=== PATIENT | female | born 1990 ===

== ENCOUNTER 2023-03-25 16:50 | Inpatient (IN) | payer OTHER ==
[~2023-03-25] VITALS: Ht 157.5 cm; Wt 71.2 kg
[2023-04-01] MEDS ORDERED: PRENATAL TABLE1 EAC1 PO (18:47)
== END 2023-04-04 12:59 | disposition home or self-care (01) | DRG 807 ==
LOC: OB/GYN 04-01 16:50 → LDR 04-01 18:16 → OB/GYN 04-02 16:53
PROVIDERS: ADMIT Obstetrics & Gynecology; ATTEND Obstetrics & Gynecology
PROC: 4A1HXCZ Monitoring of Products of Conception, Cardiac Rate, External Approach (ICD-10-PCS; 2023-04-01)
PROC: 10E0XZZ Delivery of Products of Conception, External Approach (ICD-10-PCS; principal; 2023-04-02)
PROC: 0HQ9XZZ Repair Perineum Skin, External Approach (ICD-10-PCS; 2023-04-02)
PROC: 0UQG7ZZ Repair Vagina, Via Natural or Artificial Opening (ICD-10-PCS; 2023-04-02)
DX: O70.0 First degree perineal laceration during delivery (principal); Z37.0 Single live birth; Z3A.39 39 weeks gestation of pregnancy; Z20.822 Contact with and (suspected) exposure to COVID-19